=== PATIENT | female | born 1965 | race Hispanic/Latino ===

== ENCOUNTER 2019-02-07 11:32 | Emergency (ER) | payer OTHER ==
[2019-02-07 11:38] VITALS: BP 143/83
--- NOTE | 2019-02-07 11:39 | Event Note ---
ED Screening Note Date of service: 02/07/19 Time: 11:36 ED Screening Note: This is a 53 y.o. F. that presents to the ER with right ear pain x 1 week that is progressively worse. Nonsmoker No recent travel. This initial assessment/diagnostic orders/clinical plan/treatment(s) is/are subject to change based on patients health status, clinical progression and re- assessment by fellow clinical providers in the ED. Further treatment and workup at subsequent clinical providers discretion. Patient/guardian urged not to elope from the ED as their condition may be serious if not clinically assessed and managed. Initial orders include:
[2019-02-07] MEDS ORDERED: HYDROGEN PEROXIDE TP ONE (12:59)
--- NOTE | 2019-02-07 13:06 | Emergency Department Report ---
ED ENT HPI - General Chief complaint: Earache Stated complaint: POSS EAR INFECTION Time Seen by Provider: 02/07/19 11:36 Source: patient Mode of arrival: Ambulatory Limitations: No Limitations - History of Present Illness Initial comments: 53 year-old female presents with right ear pain and ache for the past week. complaint: ear pain - Related Data Previous Rx's Medication Instructions Recorded Last Taken Type Azithromycin [Zithromax TAB] 250 mg PO QDAY #5 tablet 02/07/19 Unknown Rx Ibuprofen [Motrin 800 MG tab] 800 mg PO TID #30 tablet 02/07/19 Unknown Rx Allergies Allergy/AdvReac Type Severity Reaction Status Date / Time Penicillins Allergy Hives Verified 02/07/19 11:33 ED Dental HPI - General Chief complaint: Earache Stated complaint: POSS EAR INFECTION Time Seen by Provider: 02/07/19 11:36 Source: patient Mode of arrival: Ambulatory Limitations: No Limitations - History of Present Illness Initial comments: This is a 53-year-old female presents with right ear pain for the past week. Patient states that she's been having ear ache and is getting worse day by day. Patient states that she has a little bit of difficulty hearing out of the ear feels clogged up. She denies any trauma, foreign objects at the ears. MD complaint: ear pain - Related Data Previous Rx's Medication Instructions Recorded Last Taken Type Azithromycin [Zithromax TAB] 250 mg PO QDAY #5 tablet 02/07/19 Unknown Rx Ibuprofen [Motrin 800 MG tab] 800 mg PO TID #30 tablet 02/07/19 Unknown Rx Allergies Allergy/AdvReac Type Severity Reaction Status Date / Time Penicillins Allergy Hives Verified 02/07/19 11:33 ED Review of Systems ROS: Stated complaint: POSS EAR INFECTION Other details as noted in HPI ED Past Medical Hx - Past Medical History Previous Medical History?: No - Surgical History Past Surgical History?: Yes Hx Appendectomy: Yes Additional Surgical History: right ear surgery- 2002. hysterectomy - Social History Smoking Status: Never Smoker Substance Use Type: None - Medications Home Medications: Home Medications Medication Instructions Recorded Confirmed Last Taken Type Azithromycin [Zithromax TAB] 250 mg PO QDAY #5 tablet 02/07/19 Unknown Rx Ibuprofen [Motrin 800 MG tab] 800 mg PO TID #30 tablet 02/07/19 Unknown Rx ED Physical Exam - General Limitations: No Limitations ED Course Vital Signs 02/07/19 11:36 Temperature 98.5 F Pulse Rate 79 Respiratory 16 Rate Blood Pressure 143/83 O2 Sat by Pulse 98 Oximetry Critical care attestation.: If time is entered above; I have spent that time in minutes in the direct care of this critically ill patient, excluding procedure time. ED Disposition Clinical Impression: Cerumen impaction Disposition: - TO HOME OR SELFCARE Is pt being admited?: No Does the pt Need Aspirin: No Condition: Stable Instructions: Otitis Externa (ED), Cerumen Impaction (ED) Additional Instructions: Make sure to follow up with the primary care physician as discussed. Take all your medications as you've been prescribed. If you have any worsening symptoms or develop new symptoms please return to ED immediately. Prescriptions: Ibuprofen [Motrin 800 MG tab] 800 mg PO TID #30 tablet Azithromycin [Zithromax TAB] 250 mg PO QDAY #5 tablet Referrals: DYLAN SYKES MD [Primary Care Provider] - 3-5 Days Forms: Accompanied Note, Work/School Release Form(ED) Time of Disposition: 15:07
[2019-02-07] MEDS ORDERED: IBUPROFEN PO ONE (14:16)
== END 2019-02-07 15:24 | disposition home or self-care (01) ==
LOC: ED 11:32
DX: H61.21 Impacted cerumen, right ear (principal); Z88.0 Allergy status to penicillin; Z79.1 Long term (current) use of non-steroidal anti-inflammatories (NSAID); Z79.899 Other long term (current) drug therapy; Z90.49 Acquired absence of other specified parts of digestive tract; Z90.710 Acquired absence of both cervix and uterus
CPT/HCPCS: 99282

== ENCOUNTER 2019-04-22 03:52 | Emergency (ER) | payer OTHER ==
[2019-04-22] MEDS ORDERED: IBUPROFEN 800 MG TAB PO ONE (06:31)
--- NOTE | 2019-04-22 06:51 | Emergency Department Report ---
ED ENT HPI - General Chief complaint: Earache Stated complaint: EARACHE AND FOUL SMELL Time Seen by Provider: 04/22/19 06:31 Source: patient Mode of arrival: Ambulatory Limitations: No Limitations - History of Present Illness Initial comments: pt is a 53 y/o w/f who presents of recurrent oe, use hearing aids bilat, pt has follow up with ent in 1 week, but stats drainage and pain x 3 days, there is no fever or chills, mild tinitis, no throat pain , no veritgo. pt rates symptoms as 3/10 on 1-10 scale. Symptoms are exacerbated by movement. Symptoms are relieved by abx , ibuprofen. MD complaint: ear pain Onset/Timin -: days(s) Location: R ear Severity: moderate Severity scale (0 -10): 4 Quality: aching Consistency: constant Improves with: NSAID Worsens with: movement Associated Symptoms: tinnitus, discharge from ear. denies: fever, cough, toothache, pain with swallowing, sore throat, rhinorrhea - Related Data Previous Rx's Medication Instructions Recorded Last Taken Type Azithromycin [Zithromax TAB] 250 mg PO QDAY #5 tablet 02/07/19 Unknown Rx Ibuprofen [Motrin 800 MG tab] 800 mg PO TID #30 tablet 02/07/19 Unknown Rx Ciprofloxacin HCl/Dexameth 4 drops OT BID 10 Days #7.5 ml 04/22/19 Unknown Rx [Ciprodex Otic Suspension] Ibuprofen [Motrin 800 MG tab] 800 mg PO Q8HR PRN #30 tablet 04/22/19 Unknown Rx Allergies Allergy/AdvReac Type Severity Reaction Status Date / Time Penicillins Allergy Hives Verified 02/07/19 11:33 ED Dental HPI - General Chief complaint: Earache Stated complaint: EARACHE AND FOUL SMELL Time Seen by Provider: 04/22/19 06:31 Source: patient Mode of arrival: Ambulatory Limitations: No Limitations - Related Data Previous Rx's Medication Instructions Recorded Last Taken Type Azithromycin [Zithromax TAB] 250 mg PO QDAY #5 tablet 02/07/19 Unknown Rx Ibuprofen [Motrin 800 MG tab] 800 mg PO TID #30 tablet 02/07/19 Unknown Rx Ciprofloxacin HCl/Dexameth 4 drops OT BID 10 Days #7.5 ml 04/22/19 Unknown Rx [Ciprodex Otic Suspension] Ibuprofen [Motrin 800 MG tab] 800 mg PO Q8HR PRN #30 tablet 04/22/19 Unknown Rx Allergies Allergy/AdvReac Type Severity Reaction Status Date / Time Penicillins Allergy Hives Verified 02/07/19 11:33 ED Review of Systems ROS: Stated complaint: EARACHE AND FOUL SMELL Other details as noted in HPI Constitutional: denies: chills, fever Eyes: denies: eye pain, eye discharge, vision change ENT: ear pain. denies: throat pain Respiratory: denies: cough, shortness of breath, wheezing Cardiovascular: denies: chest pain, palpitations Endocrine: no symptoms reported Gastrointestinal: denies: abdominal pain, nausea, diarrhea Genitourinary: denies: urgency, dysuria, discharge Musculoskeletal: denies: back pain, joint swelling, arthralgia Skin: denies: rash, lesions Neurological: denies: headache, weakness, paresthesias Psychiatric: denies: anxiety, depression Hematological/Lymphatic: denies: easy bleeding, easy bruising ED Past Medical Hx - Past Medical History Previous Medical History?: No - Surgical History Past Surgical History?: Yes Hx Appendectomy: Yes Additional Surgical History: right ear surgery- 2002. hysterectomy - Social History Smoking Status: Former Smoker Substance Use Type: None - Medications Home Medications: Home Medications Medication Instructions Recorded Confirmed Last Taken Type Azithromycin [Zithromax TAB] 250 mg PO QDAY #5 tablet 02/07/19 Unknown Rx Ibuprofen [Motrin 800 MG tab] 800 mg PO TID #30 tablet 02/07/19 Unknown Rx Ciprofloxacin HCl/Dexameth 4 drops OT BID 10 Days #7.5 ml 04/22/19 Unknown Rx [Ciprodex Otic Suspension] Ibuprofen [Motrin 800 MG tab] 800 mg PO Q8HR PRN #30 tablet 04/22/19 Unknown Rx ED Physical Exam - General Limitations: No Limitations General appearance: alert, in no apparent distress - Head Head exam: Present: atraumatic, normocephalic - Eye Eye exam: Present: normal appearance, PERRL, EOMI Pupils: Present: normal accommodation - ENT ENT exam: Present: normal orophraynx, mucous membranes moist, normal external ear exam - Expanded ENT Exam Expanded TM/Canal exam: Erythema: Right TM, Loss of Landmarks: Right TM, Canal Discharge: Right TM (brown ), Canal Tenderness: Right TM - Neck Neck exam: Present: normal inspection, full ROM. Absent: tenderness, lymphadenopathy - Respiratory Respiratory exam: Present: normal lung sounds bilaterally. Absent: respiratory distress, wheezes, stridor - Cardiovascular Cardiovascular Exam: Present: regular rate, normal rhythm, normal heart sounds. Absent: systolic murmur, diastolic murmur, rubs, gallop - GI/Abdominal GI/Abdominal exam: Present: soft, normal bowel sounds - Rectal Rectal exam: Present: deferred - Extremities Exam Extremities exam: Present: normal inspection, full ROM. Absent: tenderness - Back Exam Back exam: Present: normal inspection, full ROM. Absent: tenderness - Neurological Exam Neurological exam: Present: alert, oriented X3, CN II-XII intact, normal gait - Psychiatric Psychiatric exam: Present: normal affect, normal mood - Skin Skin exam: Present: warm, dry, intact, normal color. Absent: rash ED Course Vital Signs 04/22/19 03:56 Temperature 97.7 F Pulse Rate 81 Respiratory 20 Rate Blood Pressure 152/76 O2 Sat by Pulse 97 Oximetry ED Medical Decision Making - Medical Decision Making This is otitis externa, plan ciprodex, ibuprofen, there is no decreased hearing, headache , fever , or throat pain, pt will follow up with ent as scheduled next week pt verbalized agreement and understanding of discharge plan. Critical care attestation.: If time is entered above; I have spent that time in minutes in the direct care of this critically ill patient, excluding procedure time. ED Disposition Clinical Impression: Otitis externa of right ear Qualifiers: Otitis externa type: diffuse Chronicity: acute Qualified Code(s): H60.311 - Diffuse otitis externa, right ear Disposition: - TO HOME OR SELFCARE Is pt being admited?: No Does the pt Need Aspirin: No Condition: Stable Instructions: Otitis Externa (ED) Prescriptions: Ciprofloxacin HCl/Dexameth [Ciprodex Otic Suspension] 4 drops OT BID 10 Days #7.5 ml Ibuprofen [Motrin 800 MG tab] 800 mg PO Q8HR PRN #30 tablet PRN Reason: pain Referrals: MELCHOR MONTALVO MD [Staff Physician] - 3-5 Days Forms: Work/School Release Form(ED) Time of Disposition: 06:57
[2019-04-22 07:11] VITALS: BP 134/79
== END 2019-04-22 07:10 | disposition home or self-care (01) ==
LOC: ED 03:52
DX: H60.91 Unspecified otitis externa, right ear (principal); Z90.89 Acquired absence of other organs; Z87.891 Personal history of nicotine dependence; Z90.710 Acquired absence of both cervix and uterus; Z79.899 Other long term (current) drug therapy; Z88.0 Allergy status to penicillin